=== PATIENT | male | born 1985 | race African-American/Black ===

== ENCOUNTER 2018-10-27 22:17 | Emergency (ER) | payer OTHER ==
[~2018-10-27] VITALS: Ht 182.9 cm; Wt 81.7 kg
[2018-10-27] MEDS ORDERED: BACTRIM DS TAB1 EACH PO (22:23)
[2018-10-27] MEDS ORDERED: KEFLEX500 M1 PO (22:33)
[2018-10-27] MEDS ORDERED: NORCO 5-325 TA1 EAC1 PO (22:52)
== END 2018-10-27 22:58 | disposition home or self-care (01) ==
LOC: M.ERS 22:17
DX: L03.115 Cellulitis of right lower limb (principal)

== ENCOUNTER 2018-10-29 18:01 | Inpatient (IN) | payer OTHER ==
[~2018-10-29] VITALS: Ht 177.8 cm; Wt 81.6 kg
[~2018-10-29 18:01] MED LIST: BACTRIM DS TAB1 EACH PO; KEFLEX500 M1 PO; NORCO 5-325 TA1 EAC1 PO
[2018-10-29 18:07] VITALS: BP 123/67
[2018-10-29 19:38] LABS: ABSOLUTE BASOPHILS 0.1 thou/uL (0.0-0.2); ABSOLUTE EOSINOPHILS 0.4 thou/uL (0.0-0.7); ABSOLUTE LYMPHOCYTES 1.3 thou/uL (0.8-5.3); ABSOLUTE MONOCYTES 0.5 thou/uL (0.0-1.2); ABSOLUTE NEUTROPHILS 5.4 thou/uL (1.6-8.1); BASOPHILS 0.7 %; EOSINOPHILS 5.4 %; HEMATOCRIT 44.5 % (42.0-52.0); HEMOGLOBIN 15.3 gm/dL (14.0-18.0); LYMPHOCYTES 17.1 %; MCH 28.8 pg (26.0-34.0); MCHC 34.5 g/dL (28.0-37.0); MCV 83.7 fL (80.0-100.0); MONOCYTES 6.8 %; NUCLEATED RBCS 0 /100WBC; PLATELET COUNT* 220 thou/uL (150-400); RBC 5.32 mil/uL (4.50-6.00); RDW-CV 13.3 % (10.5-14.5); WBC 7.7 thou/uL (4.0-11.0)
[2018-10-29 19:45] LABS: CALCIUM 9.2 mg/dL (8.5-10.1); CREATININE 1.3 mg/dL (0.6-1.3)
[2018-10-29 19:49] LABS: ALBUMIN 3.9 g/dL (3.4-5.0); TOTAL BILIRUBIN 0.4 mg/dL (<0.1-1.0); TOTAL PROTEIN 7.7 g/dL (6.4-8.2)
[2018-10-29 20:12] VITALS: BP 123/67
[2018-10-29 20:30] VITALS: BP 121/76
--- NOTE | 2018-10-30 04:34 | NUR ---
PATIENT CAME INTO ER AT 1807 REPORTING PAIN IN RECURRING CELLULITIS IN RIGHT LOWER LEG/FOOT. GAVE HYDROCODONE FOR PAIN DURING SHIFT. HE HAS BEEN RESTING COMFORTABLY THROUGH SHIFT. HIS IV HAS BEEN INFUSING NS AT 100 MLS/HR. FINISHED A 250 ML DOSE OF VANC DURING SHIFT. HE IS TO BE SEEN BY ORTHO CONSULT WILL BE CALLED IN FOR TODAY.
[2018-10-30 07:45] VITALS: BP 111/59
--- NOTE | 2018-10-30 12:05 | NUR ---
PT.ALERT AND ORIENTED. HE HAD I&D OF RIGHT ANKLE THIS AM. HE SAID HE LIVES WITH HIS . HE IS INDEPENDENT. 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 NO NEEDS IDENTIFIED AT THIS TIME. IS AWARE WE ARE WAITING ON CULTURES TO DETERMINE WHAT ANITIBIOTIC HE NEEDS. TO SEE.
[2018-10-30 16:00] VITALS: BP 114/63
--- NOTE | 2018-10-30 19:00 | NUR ---
PATIENT PLEASANT AND COOPERATIVE, CONVERSANT THRU SHIFT. SEE MAR FOR PAIN CONTROL. PHYSICIAN IN, I&D TO RT POST LOWER LEG DONE. PATIENT TRISTIN WELL, WOUND CULTURES DONE PER PHYSICIAN AND SENT TO LAB FOR ANALYSIS. DRSG TO SITE CHANGED AT THIS TIME, QUARTER SIZE RED DRNG NOTED ON DRSG. WOUND SITE NOTED RED AND MOIST, WELL DEFINED EDGES. IV FLUIDS INFUSING S/O DIFF, IV CATH SITE NOTED WNL. ~TJRN
[2018-10-30 20:00] VITALS: BP 115/69
--- NOTE | 2018-10-31 04:25 | NUR ---
PT ALERT AND ORIENTED. VITALS STABLE RA. MEDS GIVEN ORDERED. PAIN CONTROLLED WITH PO PAIN MED. DRESSING ON RT ANKLE CLEAN AND DRY. RT LEG ELEVATED ON PILLOW FOR PT COMFORTNESS. PT SLEEPING THROUGH THE NIGHT. WILL CONTINUE TO MONITOR.
[2018-10-31 07:33] LABS: ABSOLUTE EOSINOPHILS 0.3 thou/uL (0.0-0.7); ABSOLUTE LYMPHOCYTES 1.2 thou/uL (0.8-5.3); ABSOLUTE MONOCYTES 0.3 thou/uL (0.0-1.2); ABSOLUTE NEUTROPHILS 2.7 thou/uL (1.6-8.1); BASOPHILS 0.8 %; EOSINOPHILS 5.5 %; HEMATOCRIT 41.3 % (42.0-52.0); LYMPHOCYTES 27.3 %; MCH 28.7 pg (26.0-34.0); MCHC 33.9 g/dL (28.0-37.0); MCV 84.8 fL (80.0-100.0); MONOCYTES 6.7 %; MPV 8.8 fl. (7.2-11.1); NUCLEATED RBCS 0 /100WBC; PLATELET COUNT* 205 thou/uL (150-400); POLYS 59.7 %; RBC 4.87 mil/uL (4.50-6.00); RDW-CV 13.3 % (10.5-14.5); WBC 4.6 thou/uL (4.0-11.0)
[2018-10-31 07:44] LABS: CALCIUM 8.7 mg/dL (8.5-10.1); CREATININE 1.1 mg/dL (0.6-1.3); POTASSIUM 4.4 mmol/L (3.5-5.1)
[2018-10-31 08:30] VITALS: BP 115/82
--- NOTE | 2018-10-31 08:56 | CON ---
[address] [address] CONSULTATION Name: BARBIEWILNELLY CRANE Room: [address] [facility]#: [id number] Admission: 10/29/18 Attend Phys: Melquiades Joya MD Discharge: Date of : 81 Report #: [id number] THIS REPORT FOR: //name// CC: XIMENA physician/PCP Melquiades Joya DATE OF SERVICE: 10/30/2018 ATTENDING PHYSICIAN: Matthew Dorado M.D. REASON FOR EVALUATION: Right lateral ankle inflammatory process likely skin and soft tissue infection with abscess, cannot entirely exclude deeper structure. HISTORY OF PRESENT ILLNESS: Chart reviewed, the patient examined. This 33-year-old man who really has no medical history, who admitted through the Emergency Room with complaints of increasing pain, swelling about his right ankle. He suspects perhaps was bitten by something several days ago. It kind of localized at some point. He was evaluated as an outpatient in the urgent care, was prescribed trimethoprim-sulfamethoxazole without benefit. Returns to the Emergency Room, was given dose of ceftriaxone as well as starting on cephalexin again, had increasing and now became circumferential through the extent of the right ankle. It is not clear he had significant systemic illness. He was readmitted following his representation. He was placed empirically on vancomycin and ceftriaxone. Surgical evaluation is pending and likely debridement. Denies any significant pulmonary or gastrointestinal related complaints. ALLERGIES: None known. MEDICATIONS: Enoxaparin, pantoprazole, ceftriaxone, vancomycin, hydrocodone, ondansetron. PAST MEDICAL HISTORY: Otherwise unremarkable. SOCIAL HISTORY: Nonsmoker, no ethanol, no illicit drug use. FAMILY HISTORY: Noncontributory. REVIEW OF SYSTEMS: Otherwise, unremarkable 10-point review of systems with exception of the above in the history of present illness. PHYSICAL EXAMINATION: GENERAL: He is alert, cooperative, appropriate, well-nourished in mild distress with increased discomfort associated with examination of the ankle. VITAL SIGNS: Temperature 97.8, pulse 65, respirations 17, blood pressure 120/76. [place] [address] CONSULTATION Name: RICO VALENTIN ROSA MARIA Room: [address] [facility]#: [id number] Admission: 10/29/18 Attend Phys: Melquiades Joya MD Discharge: Date of : 81 Report #: [id number] SKIN: Warm, dry, no rashes. HEENT: Normocephalic. Extraocular muscles intact. NECK: Supple. LUNGS: Clear to auscultation. HEART: Regular rate and rhythm without murmur. ABDOMEN: Soft, nontender, nondistended. EXTREMITIES: Right ankle has got an area of moderate to marked inflammation noted posterior to the malleolus. There is degree of tenting of the skin, suggest subcutaneous fluid, it is quite tender to palpation. Does have decreased range of motion about the ankle joint. GENITOURINARY AND RECTAL: Deferred. LABORATORY DATA: Blood cultures sterile thus far. Lactic acid 1.0. Electrolytes: Sodium 141, potassium 4.0, chloride 103, bicarbonate is 30, anion gap 8, BUN and creatinine 9 and 1.3, glucose of 77. Albumin of 3.9, total protein 7.7. Estimated GFR of 76. CBC: White count of 7.7, H and H 15.3 and 44.5, and platelets of 220. ASSESSMENT: Infection of the right lateral ankle difficult to ascertain clinically, somewhat concerned about deeper involvement. Agree with operative evaluation. We will continue empiric therapy presumably a Staph or strep etiology. We will obtain cultures with a sort of debulking of the site. Discussed with the patient's spouse. <ELECTRONICALLY SIGNED> By: Sj Ron MD 10/31/18 [id number] Ron MD /nt
--- NOTE | 2018-10-31 14:36 | NUR ---
REPORT GIVEN TO BRIANNA BENAVIDES TO ASSUME CARE. PATIENT GIVEN PRN HYDROCODONE X 2 FOR RIGHT ANKLE PAIN. RIGHT ANKLE DEEDEE WRAP CHANGED AFTER SHOWER, WOUND WAS WRAPPED. IVF AND SCHED ABX INFUSING. VANC TROUGH 9 THIS AM, VANCOMYCIN INCREASED TO TID. PATIENT AWARE.
--- NOTE | 2018-10-31 17:13 | NUR ---
ASSUMED PT CARE AT 1300. PT A&Ox4. VITALS STABLE. IV PATENT. DENIED N/V. MINIMAL PAIN, PAIN MEDS GIVEN BEFORE I TOOK OVER PT CARE. UP AD SHIRIN. DRESSING C/D/I. CALL LIGHT WITHIN REACH. WILL CONTINUE TO MONITOR.
[2018-10-31 19:45] VITALS: BP 113/56
--- NOTE | 2018-11-01 06:38 | NUR ---
PATIENT SLEPT MOST OF THE MIGHT. IV FLUIDS AND VANC WAS GIVEN ORDERED. PATIENT WAS GIVEN PAIN MEDICINE TWICE FOR HEADACHE. DRESSING TO RIGHT ANKLE REMAINS INTACT. WILL CONTINUE TO MONITOR.
[2018-11-01 07:53] VITALS: BP 109/79
[2018-11-01 10:08] VITALS: BP 109/79
[2018-11-01] MEDS ORDERED: RIFAMPIN 300 M300 M1 PO (10:32)
[2018-11-01] MEDS ORDERED: MINOCYCLINE HC100 M2 PO (10:33)
--- NOTE | 2018-11-01 11:57 | NUR ---
PT DISCHARGE AND LEFT UNIT AT 1155 BY WHEELCHAIR WITH NURSING STAFF AND SPOUSE TO HOME. IV OUT. PT STABLE UPON DISCHARGE. PAPER RX AND CARE NOTES GIVEN. DRESSING C/D/I. PERSONAL ITEMS SENT WITH PT.
== END 2018-11-01 11:55 | disposition home or self-care (01) | DRG 581 ==
LOC: M.ERS 18:01 → M.ORTHSURG 19:24 → M.TBA-ER 19:24 → M.ORTHSURG 20:20
PROVIDERS: Internal Medicine; Physician Assistant; ADMIT Family Medicine
PROC: 0J9Q0ZZ Drainage of Right Foot Subcutaneous Tissue and Fascia, Open Approach (ICD-10-PCS; principal; 2018-10-30)
DX: L03.115 Cellulitis of right lower limb (principal); L02.415 Cutaneous abscess of right lower limb; H53.149 Visual discomfort, unspecified; Z79.899 Other long term (current) drug therapy; Z79.2 Long term (current) use of antibiotics